=== PATIENT | male | born 1975 | race Caucasian/White ===

== ENCOUNTER 2019-08-15 07:56 | Outpatient (CLI) | payer OTHER ==
[~2019-08-15] VITALS: Ht 177.8 cm; Wt 121.7 kg
[2019-08-15 07:55] VITALS: BP 128/81
[2019-08-15] MEDS ORDERED: SODIUM CHLORIDE 0.9% IV ONE (09:00)
[2019-08-15] MEDS ORDERED: [UNRECOGNIZED DRUG - OTHER] IV ONE (09:00)
[2019-08-15] MEDS ORDERED: DIPHENHYDRAMINE 50 MG CAPSULE PO ONE (09:00)
[2019-08-15] MEDS ORDERED: methylPREDNISolone SOD SUCC 125 MG/2 ML IVPush ONE (09:00)
== END 2019-08-15 23:59 | disposition home or self-care (01) ==
LOC: INFUSION 07:56
PROVIDERS: ATTEND Internal Medicine
DX: M1A.00X1 Idiopathic chronic gout, unspecified site, with tophus (tophi) (principal)
CPT/HCPCS: 96365; 96366; 96375; J2930; J7050

== ENCOUNTER → 2019-08-28 | Outpatient (CLI) | payer OTHER ==
[~2019-08-28] VITALS: Ht 177.8 cm; Wt 121.9 kg
[~2019-08-28] MED LIST: DIPHENHYDRAMINE 50 MG CAPSULE PO ONE; SODIUM CHLORIDE 0.9% IV ONE; [UNRECOGNIZED DRUG - OTHER] IV ONE; methylPREDNISolone SOD SUCC 125 MG/2 ML IVPush ONE
[2019-08-28 07:50] VITALS: BP 139/80
== END | disposition home or self-care (01) ==
LOC: INFUSION 07:23
PROVIDERS: ATTEND Internal Medicine
DX: M1A.00X1 Idiopathic chronic gout, unspecified site, with tophus (tophi) (principal); Z84.89 Family history of other specified conditions; Z88.0 Allergy status to penicillin
CPT/HCPCS: 96365; 96366; 96375; J2930; J7050

== ENCOUNTER 2019-09-11 08:03 | Outpatient (CLI) | payer OTHER ==
[~2019-09-11] VITALS: Ht 177.8 cm; Wt 121.4 kg
[2019-09-11 08:46] VITALS: BP 136/80
[2019-09-25] MEDS ORDERED: HYDROCORTISONE 100 MG INJ. ONE (08:18)
[2019-09-25] MEDS ORDERED: DIPHENHYDRAMINE 50 MG CAPSULE ONE (08:18)
== END 2019-09-11 23:59 | disposition home or self-care (01) ==
LOC: INFUSION 08:03
PROVIDERS: ATTEND Internal Medicine
DX: M1A.9XX1 Chronic gout, unspecified, with tophus (tophi) (principal)
CPT/HCPCS: 96365; 96366; 96375; J2930; J7050; J2507

== ENCOUNTER 2019-09-25 08:17 | Outpatient (CLI) | payer OTHER ==
[~2019-09-25] VITALS: Ht 177.8 cm; Wt 121.4 kg
[2019-09-25 07:50] VITALS: BP 125/76
[~2019-09-25 08:17] MED LIST changes: -SODIUM CHLORIDE 0.9% IV ONE; -[UNRECOGNIZED DRUG - OTHER] IV ONE
[2019-09-25] MEDS ORDERED: SODIUM CHLORIDE 0.9% IV ONE (08:30)
[2019-09-25] MEDS ORDERED: [UNRECOGNIZED DRUG - OTHER] IV ONE (08:30)
[2019-09-25] MEDS ORDERED: PLEASE ENTER HEIGHT AND WEIGHT MC SCH (08:30)
== END 2019-09-25 23:59 | disposition home or self-care (01) ==
LOC: INFUSION 08:17
PROVIDERS: ATTEND Internal Medicine
DX: M1A.00X1 Idiopathic chronic gout, unspecified site, with tophus (tophi) (principal)
CPT/HCPCS: 96365; 96366; 96375; J2930; J7050; J2507